=== PATIENT | female | born 2000 | race African-American/Black ===

== ENCOUNTER 2022-07-20 12:27 | Outpatient (CLI) | payer OTHER | END 2022-07-20 12:28 | disposition home or self-care (01) | LOC: SCSRAD 12:27 | PROVIDERS: ATTEND Chiropractor | DX: S13.4XXA Sprain of ligaments of cervical spine, initial encounter (principal); S33.5XXA Sprain of ligaments of lumbar spine, initial encounter; S16.1XXA Strain of muscle, fascia and tendon at neck level, initial encounter; S39.012A Strain of muscle, fascia and tendon of lower back, initial encounter; M41.9 Scoliosis, unspecified | CPT/HCPCS: 72040; 72100 ==